=== PATIENT | male | born 1995 | race Caucasian/White ===

== ENCOUNTER 2021-04-04 12:22 | Emergency (ER) | payer SELFPAY ==
[~2021-04-04] VITALS: Ht 177.8 cm; Wt 74.8 kg
[2021-04-04 12:27] VITALS: BP 114/73
--- NOTE | 2021-04-04 12:31 | NUR ---
The patient bibs for c/o tailbone pain since yesterday 03/25 ps. Will continue to monitor the patient.
--- NOTE | 2021-04-04 12:37 | NUR ---
DR LALA AT THE BEDSIDE
[2021-04-04] MEDS ORDERED: SULF1TAB48 PO (12:38)
[2021-04-04] MEDS ORDERED: LIDOCAINE 2% JEL 5 ML TUBE ONE (12:46)
--- NOTE | 2021-04-04 12:50 | NUR ---
Patient discharged to home in stable condition. Written and verbal after care instructions given. Patient verbalizes understanding of instruction.
[2021-04-04] MEDS ORDERED: LIDOCAINE VISCOUS 2% UD 15 ML UDC MM ONE (13:00)
== END 2021-04-04 12:51 | disposition home or self-care (01) ==
LOC: ER 12:25
DX: L05.91 Pilonidal cyst without abscess (principal)